=== PATIENT | male | born 1965 | race Caucasian/White ===

== ENCOUNTER 2020-11-06 22:00 | Emergency (ER) | payer OTHER ==
[~2020-11-06 22:00] MED LIST: NO HOME MEDS; PENICILLN VK500 M1 OR
== END 2020-11-06 23:35 | disposition left against medical advice (07) | DRG 951 ==
LOC: ED 22:00 → LWOBS 22:35
DX: Z53.21 Procedure and treatment not carried out due to patient leaving prior to being seen by health care provider (principal)

== ENCOUNTER 2023-04-03 15:09 | Emergency (ER) | payer OTHER ==
[~2023-04-03] VITALS: Ht 172.7 cm; Wt 70.3 kg
[~2023-04-03 15:09] MED LIST changes: +LASIX 40 MG TAB40 MG PO
[2023-04-03 15:14] VITALS: BP 144/85
[2023-04-03 15:30] VITALS: BP 134/72
[2023-04-03 15:32] VITALS: BP 134/72
== END 2023-04-03 15:49 | disposition left against medical advice (07) | DRG 605 ==
LOC: ED 15:09
DX: S20.212A Contusion of left front wall of thorax, initial encounter (principal); M79.604 Pain in right leg; V58.6XXA Passenger in pick-up truck or van injured in noncollision transport accident in traffic accident, initial encounter; Z53.29 Procedure and treatment not carried out because of patient's decision for other reasons